=== PATIENT | male | born 1985 | race Caucasian/White ===

== ENCOUNTER 2018-11-03 15:58 | Emergency (ER) | payer OTHER ==
[~2018-11-03] VITALS: Ht 180.3 cm; Wt 90.7 kg
[~2018-11-03 15:58] MED LIST: NORCO 5-325 TA1 EACH PO
[2018-11-03] MEDS ORDERED: MOBIC15 MG PO (16:02)
[2018-11-03 17:35] VITALS: BP 117/72
[2018-11-03] MEDS ORDERED: NEOMYC-POLYM-DEX5 ML OPHTHALMIC (22:03)
== END 2018-11-03 17:15 | disposition home or self-care (01) ==
LOC: ER 15:58
DX: S05.01XA Injury of conjunctiva and corneal abrasion without foreign body, right eye, initial encounter (principal); Z79.899 Other long term (current) drug therapy; X58.XXXA Exposure to other specified factors, initial encounter; Y93.89 Activity, other specified; Y92.89 Other specified places as the place of occurrence of the external cause; Y99.9 Unspecified external cause status